=== PATIENT | female | born 1950 | race Caucasian/White ===

== ENCOUNTER 2016-04-14 17:37 | Emergency (ER) | payer BC ==
[2016-04-14 18:28] LABS: BASO % 0.2 % (0.0-1.0); EOS # 0.1 K/mm3 (0.0-0.50); EOS % 1.1 % (0.0-3.0); LARGE UNSTAINED CELL # 0.1 K/mm3 (0.0-0.4); LARGE UNSTAINED CELL % 1.6 % (0.0-4.0); LYMPH # 2.6 K/mm3 (1.5-4.5); LYMPH % 31.8 % (24.0-44.0); MEAN CORPUSCULAR HEMOGLOBIN 33.1 pg (27.0-33.0); MEAN CORPUSCULAR HGB CONC 35.1 g/dl (32.0-36.5); MEAN CORPUSCULAR VOLUME 94.4 fl (80.0-96.0); MONO # 0.5 K/mm3 (0.0-0.8); NEUTROPHILS # 4.6 K/mm3 (1.8-7.7); NEUTROPHILS % 59.4 % (36.0-66.0); PLATELET COUNT, AUTOMATED 222 k/mm3 (150-450); RED CELL DISTRIBUTION WIDTH 13.1 % (11.5-14.5); WHITE BLOOD COUNT 7.8 K/mm3 (4.0-10.0)
[2016-04-14 18:53] LABS: ALBUMIN 3.8 GM/DL (3.2-5.2); ALBUMIN/GLOBULIN RATIO 1.09 (1.00-1.93); ALKALINE PHOSPHATASE 92 U/L (45-117); ALT/SGPT 75 U/L (12-78); AMYLASE 30 U/L (25-115); ANION GAP 8 MEQ/L (8-16); AST/SGOT 69 U/L (15-37); BILIRUBIN,DIRECT 0.2 MG/DL (0.0-0.2); BILIRUBIN,TOTAL 0.5 MG/DL (0.2-1.0); BLOOD UREA NITROGEN 18 MG/DL (7-18); CALCIUM LEVEL 9.1 MG/DL (8.8-10.2); CARBON DIOXIDE LEVEL 29 MEQ/L (21-32); CHLORIDE LEVEL 105 MEQ/L (98-107); CREATININE FOR GFR 0.88 MG/DL (0.55-1.02); GLOMERULAR FILTRATION RATE > 60.0 (>45); GLUCOSE, FASTING 110 MG/DL (80-110); POTASSIUM SERUM 4.1 MEQ/L (3.5-5.1); SODIUM LEVEL 142 MEQ/L (136-145); TOTAL PROTEIN 7.3 GM/DL (6.4-8.2)
[2016-04-14] MEDS ORDERED: PANTOPRAZOLE 40MG INJ (PROTONIX) (C9113) As Ordered ONE (19:17)
[2016-04-14] MEDS ORDERED: ONDANSETRON 4MG/2ML VIAL (J2405) As Ordered ONE (19:17)
[2016-04-14] MEDS ORDERED: ISOVUE-370 76% 100ML VIAL (Q9967) As Ordered ONE (19:34)
--- NOTE | 2016-04-14 20:10 | REPUSA ---
CT of the abdomen and pelvis with contrast Clinical statement: Pain. Technique: Multiple axial CT images were obtained from the base of the lungs through the floor of the pelvis utilizing 5 mm axial slices after administration of nonionic intravenous contrast. Coronal an d sagittal reconstructions were also obtained. No comparison is available. Findings: Chest: The visualized lung bases are clear. Abdomen: The spleen, pancreas, kidneys, gallbladder, and adrenal glands are unremarkable. The liver d emonstrates diffuse low attenuation of the hepatic parenchyma, and is enlarged measuring 24.6 cm in m aximal diameter. The aorta is within normal limits. There is no evidence of abdominal lymphadenopathy or ascites. Pelvis: The bowel is unremarkable, with no obstructive or inflammatory changes. The appendix is pura l. Minimal sigmoid diverticulosis is appreciated. The urinary bladder is within normal limits. The ot her pelvic structures appear grossly intact. There is no evidence of pelvic lymphadenopathy or ascite s. Bones: There are no suspicious osseous abnormalities seen. Impression: 1. No acute abnormality to explain the patient's pain. 2. Hepatomegaly with diffuse fatty infiltration of the liver. 3. Minimal sigmoid diverticulosis, without evidence of diverticulitis.
--- NOTE | 2016-04-14 22:59 | EDDOCDS ---
Physician Documentation [facility] Name: Billie Becerril Age: 65 yrs Sex: Female : 1950 Arrival Date: 04/14/2016 Time: 17:37 Bed I2 / M2 Private MD: Salvatore Clancy Disposition: 04/14/16 22:44 Discharged to Home/Self Care. Impression: Vomiting. - Condition is Stable. - Discharge Instructions: Nausea and Vomiting. - Prescriptions for Tigan 300 mg Oral Capsule - take 1 capsule by ORAL route every 8 hours As needed; 12 capsule. - Medication Reconciliation, Local Pharmacy Hours form. - Follow up: Salvatore Clancy; When: 1 - 2 days; Reason: Recheck today's complaints, Continuance of care. - Problem is new. - Symptoms have improved. - Notes: USE MEDICATION INSTRUCTED, FOLLOW UP WITH YOUR DOCTOR TOMORROW, RETURN TO THE ER IF THE SYMPTOMS WORSEN OR BECOME CONCERNING Historical: - Allergies: SULFA (SULFONAMIDES); Aspirin; - Home Meds: 1. Lantus 100 unit/mL Sub-Q crtg 80 units daily 2. Augmentin 875-125 mg Oral tab (Last dose: 04/12/2016) 3. Victoza 2-Chidi 0.6 mg/0.1 mL (18 mg/3 mL) subcutaneous pnij once daily (Last dose: 04/13/2016) 4. Iron CR 325 mg Oral daily 5. hydrocortisone 0.5 % Topical crea once daily 6. Synthroid 75 mcg Oral tab once daily 7. pravastatin 80 mg oral tab once daily 8. cyanocobalamin (vitamin B-12) 1,000 mcg oral TbER daily 9. citalopram 20 mg Oral tab once daily 10. Niaspan Extended-Release 500 mg Oral Tb24 once daily 11. clotrimazole 1 % Topical crea 2 times per day 12. lysine 1,000 mg oral tab daily 13. Anusol 1-46.6-12.5 % Rectal oint daily 14. Xyzal 5 mg oral tab once daily 15. omeprazole 20 mg Oral TbEC daily 16. Trilipix 45 mg oral cpDR once daily 17. Vitamin D3 1,000 unit oral cap 18. allopurinol 300 mg Oral tab once daily 19. colchicine 0.6 mg Oral tab once daily 20. Depakote ER 250 mg Oral Tb24 once daily 21. calcium citrate 200 mg (950 mg) Oral tab daily 22. Demadex 20 mg Oral tab once daily - PMHx: Diverticulitis; Diabetes - IDDM: controlled; Gout; Seizure Disorder; Hypothyroidism; - Social history: Smoking status: Patient states was never smoker of tobacco. No barriers to communication noted, The patient speaks fluent Vietnamese, Speaks appropriately for age. - Family history: Not pertinent. - : The pt / caregiver states he / she is not on anticoagulants. Home medication list is obtained from a discharge med list. - Exposure Risk Screening:: None identified. Vital Signs: 04/14 17:39 BP 151 / 82; Pulse 94; Resp 20; Temp 97.6(TE); Pulse Ox 97% on R/A; Weight 97.52 kg / ar3 214.99 lbs (R); Height 5 ft. 7 in. (170.18 cm) (R); Pain 10/10; 22:33 BP 117 / 65; Pulse 78; Resp 18; Temp 97.1(O); Pulse Ox 94% on R/A; Pain 0/10; kb5 17:39 Body Mass Index 33.67 (97.52 kg, 170.18 cm) ar3 MDM: 18:10 Amylase Ordered. EDMS 18:10 Basic Metabolic Profile Ordered. EDMS 18:10 CBC with Diff Ordered. EDMS 18:10 Urinalysis Ordered. EDMS 18:10 NOTHING BY MOUTH+DIET ordered. EDMS 18:12 LIPASE Ordered. EDMS 18:12 LIVER PROFILE Ordered. EDMS 18:45 Accucheck ordered. ck7 19:00 CBC with Diff Reviewed. ck7 19:00 Urinalysis Reviewed. ck7 19:00 LIVER PROFILE Reviewed. ck7 19:00 Amylase Reviewed. ck7 19:00 Basic Metabolic Profile Reviewed. ck7 19:00 LIPASE Reviewed. ck7 19:02 IV Saline Lock ordered. ck7 19:02 NS 0.9% 1000 ml IV at bolus once ordered. ck7 19:02 Ondansetron 4 mg IVP once ordered. ck7 19:02 pantoprazole 40 mg IV at bolus once ordered. ck7 19:03 Cardiac Marker Panel Ordered. EDMS 19:04 ECG WITH READING ER PHYS+CARDIAG ordered. EDMS 19:04 CT ABD & PELVIS: IV Contrast Only Ordered. EDMS 20:59 CT ABD & PELVIS: IV Contrast Only Reviewed. ck7 21:56 Cardiac Marker Panel Reviewed. ck7 21:58 Fluid Challenge ordered. ck7 Point of Care Testing: Blood Glucose: 18:48 Blood Glucose: 103 mg/dL; ead Ranges: Administered Medications: 19:25 Drug: pantoprazole 40 mg [pantoprazole 40 mg intravenous solution] Route: IV; Rate: ld5 bolus; Site: right antecubital; 20:54 Follow up: IV Status: Completed infusion; IV Intake: 10ml ld5 19:26 Drug: NS 0.9% 1000 ml [sodium chloride 0.9 % intravenous solution] Route: IV; Rate: ld5 bolus; Site: right antecubital; 20:54 Follow up: IV Status: Completed infusion; IV Intake: 1000ml ld5 19:26 Drug: Ondansetron 4 mg [ondansetron HCl 2 mg/mL intravenous solution (2 mL)] Route: ld5 IVP; Site: right antecubital; 20:54 Follow up: Response: Nausea is decreased ld5 Signatures: Dispatcher [employer] EDTianna Garrison, RN RN Lilly Clarke,RN RN ld5 Randall Antonio, ANGE-C RPA-Cck7 Yuliet Anne,RN RN ead The chart was reviewed and I authenticate all verbal orders and agree with the evaluation and treatment provided.Corrections: (The following items were deleted from the chart) 18:11 18:10 LIPASE+LAB ordered. [facility] EDMS 18:11 18:10 LIVER PROFILE+LAB ordered. [facility] EDNV 18:23 18:08 Undress patient appropriately for examination ordered. maira ar3 MTDD
--- NOTE | 2016-04-14 22:59 | EDDOCDS ---
Nurse's Notes [facility] Name: Billie Becerril Age: 65 yrs Sex: Female : 1950 Arrival Date: 04/14/2016 Time: 17:37 Bed I2 / M2 Private MD: Salvatore Clancy Diagnosis: Vomiting Presentation: 04/14 17:42 Presenting complaint: Patient states: pt c/o n/v x 3 days. Seen by Primary one week ago ead and diagnosed with strep throat. reports pt unable to keep antibiotics down. Adult Sepsis Screening: The patient does not have new or worsening altered mentation. Patient's respiratory rate is less than 22. Systolic blood pressure is greater than 100. Patient has a qSOFA score of 0- Negative Sepsis Screen. Suicide/Homicide risk assessment- the patient denies having any suicidal and/or homicidal ideations and does not present with any other emotional, behavioral or mental health complaints. Status: Patient is not a sales & service associate or dependent. Transition of care: patient was not received from another setting of care. 17:42 Acuity: MAHESH Level 3 ead 17:42 Method Of Arrival: Walkin/Carried/Asstd ead Triage Assessment: 17:53 General: Appears in no apparent distress, Behavior is appropriate for age, cooperative. ead Pain: Denies pain. Neurological: Level of Consciousness is awake, alert, obeys commands, Oriented to person, place, time. Respiratory: Airway is patent Respiratory effort is even, unlabored. GI: Reports nausea, vomiting. Derm: Skin is pink, warm & dry. Historical: - Allergies: SULFA (SULFONAMIDES); Aspirin; - Home Meds: 1. Lantus 100 unit/mL Sub-Q crtg 80 units daily 2. Augmentin 875-125 mg Oral tab (Last dose: 04/12/2016) 3. Victoza 2-Chidi 0.6 mg/0.1 mL (18 mg/3 mL) subcutaneous pnij once daily (Last dose: 04/13/2016) 4. Iron CR 325 mg Oral daily 5. hydrocortisone 0.5 % Topical crea once daily 6. Synthroid 75 mcg Oral tab once daily 7. pravastatin 80 mg oral tab once daily 8. cyanocobalamin (vitamin B-12) 1,000 mcg oral TbER daily 9. citalopram 20 mg Oral tab once daily 10. Niaspan Extended-Release 500 mg Oral Tb24 once daily 11. clotrimazole 1 % Topical crea 2 times per day 12. lysine 1,000 mg oral tab daily 13. Anusol 1-46.6-12.5 % Rectal oint daily 14. Xyzal 5 mg oral tab once daily 15. omeprazole 20 mg Oral TbEC daily 16. Trilipix 45 mg oral cpDR once daily 17. Vitamin D3 1,000 unit oral cap 18. allopurinol 300 mg Oral tab once daily 19. colchicine 0.6 mg Oral tab once daily 20. Depakote ER 250 mg Oral Tb24 once daily 21. calcium citrate 200 mg (950 mg) Oral tab daily 22. Demadex 20 mg Oral tab once daily - PMHx: Diverticulitis; Diabetes - IDDM: controlled; Gout; Seizure Disorder; Hypothyroidism; - Social history: Smoking status: Patient states was never smoker of tobacco. No barriers to communication noted, The patient speaks fluent Maori, Speaks appropriately for age. - Family history: Not pertinent. - : The pt / caregiver states he / she is not on anticoagulants. Home medication list is obtained from a discharge med list. - Exposure Risk Screening:: None identified. Screenin:26 Screening information is obtained from the patient. Fall risk: No risks identified. ld5 Assistance ADL's: requires no assistance with activities of daily living. Abuse/DV Screen: The patient / caregiver reports he/she is: not in a situation that causes fear, pain or injury. Nutritional screening: No deficits noted. Advance Directives: There is no active DNR order. home support is adequate. Assessment: 19:26 General: Appears in no apparent distress, Behavior is cooperative. Pain: Location: left ld5 lower quadrant Pain currently is 8 out of 10 on a pain scale. Neurological: Level of Consciousness is awake, alert. Respiratory: Airway is patent Respiratory effort is even, unlabored, Breath sounds are clear bilaterally. GI: Abdomen is non- distended Bowel sounds present X 4 quads. Abd is tender to palpation in right lower quadrant and left lower quadrant Reports constipation, nausea, vomiting, intolerance of food, intolerance of fluids. : Denies burning with urination, pain with urination. Derm: Skin is intact, Skin is dry. 19:50 General: Appears in no apparent distress, Pt returned to bed from CT; resting on js15 stretcher with family at bedside; respirations even and unlabored; skin pink, warm, dry; given blanket per request. denies pain or other needs at this time. 20:36 General: Pt resting comfortably in bed. No apparent distress. Awaiting CT results. Will ld5 continue to monitor. 21:30 General: Appears in no apparent distress, Pt resting comfortably in bed watching TV. No ld5 apparent distress. Will continue to monitor. 22:56 General: Appears in no apparent distress, Behavior is cooperative. Pain: Denies pain. ld5 Neurological: Level of Consciousness is awake, alert. Respiratory: Airway is patent Respiratory effort is even, unlabored. GI: Denies nausea. Vital Signs: 17:39 BP 151 / 82; Pulse 94; Resp 20; Temp 97.6(TE); Pulse Ox 97% on R/A; Weight 97.52 kg ar3 (R); Height 5 ft. 7 in. (170.18 cm) (R); Pain 10/10; 22:33 BP 117 / 65; Pulse 78; Resp 18; Temp 97.1(O); Pulse Ox 94% on R/A; Pain 0/10; kb5 17:39 Body Mass Index 33.67 (97.52 kg, 170.18 cm) ar3 Vitals: 17:39 Log In Time: April 14, 2016 at 17:33. ar3 ED Course: 17:38 Patient visited by Ruba Dowell PCA. ar3 17:38 Salvatore Clancy is Private Physician. ar3 17:38 Patient moved to Waiting ar3 17:40 Patient moved to Pre RCE ar3 17:43 Triage Initiated ead 18:22 LIVER PROFILE Sent. ar3 18:22 LIPASE Sent. ar3 18:22 Amylase Sent. ar3 18:22 Basic Metabolic Profile Sent. ar3 18:22 CBC with Diff Sent. ar3 18:23 Urinalysis Sent. ar3 18:44 Patient moved to Triage 1 ar3 18:48 Randall Antonio RPA-C is [facility]. ck7 18:48 Leobardo Darnell MD is Attending Physician. ck7 18:48 Patient visited by Yuliet Anne RN. ead 18:48 Patient visited by Randall Antonio RPA-C. ck7 19:04 Patient moved to I2 / M2 ar3 19:08 Cardiac Marker Panel Sent. js15 19:22 EKG done. (by ED staff). Reviewed by Randall RUSSELL. kb5 19:26 The patient / caregiver is instructed regarding the plan of care and ED course. ld5 Accompanied by Significant Other, Patient has correct armband on for positive identification. Placed in gown. Bed in low position. Call light in reach. 19:26 Inserted saline lock: 20 gauge in right antecubital area The patient tolerated the ld5 procedure well. 19:28 Patient visited by Lilly Ramirez RN. ld5 19:54 Patient visited by Gato Mitchell PCA. kb5 20:36 Patient visited by Lilly Ramirez RN. ld5 20:55 CT ABD & PELVIS: IV Contrast Only Returned. EDMS 21:08 Patient visited by Gato Mitchell PCA. kb5 21:41 Patient visited by Randall Antonio RPA-C. ck7 22:16 Patient visited by Gato Mitchell PCA. kb5 22:33 Patient visited by Gato Mitchell PCA. kb5 22:44 Salvatore Clancy is Referral Physician. ck7 22:56 Discontinued lock intact, bleeding controlled, pressure dressing applied, No ld5 redness/swelling at site. No procedures done that require assistance. 22:57 Patient visited by Lilly Ramirez RN. ld5 Administered Medications: 19:25 Drug: pantoprazole 40 mg [pantoprazole 40 mg intravenous solution] Route: IV; Rate: ld5 bolus; Site: right antecubital; 20:54 Follow up: IV Status: Completed infusion; IV Intake: 10ml ld5 19:26 Drug: NS 0.9% 1000 ml [sodium chloride 0.9 % intravenous solution] Route: IV; Rate: ld5 bolus; Site: right antecubital; 20:54 Follow up: IV Status: Completed infusion; IV Intake: 1000ml ld5 19:26 Drug: Ondansetron 4 mg [ondansetron HCl 2 mg/mL intravenous solution (2 mL)] Route: ld5 IVP; Site: right antecubital; 20:54 Follow up: Response: Nausea is decreased ld5 Point of Care Testing: Blood Glucose: 18:48 Blood Glucose: 103 mg/dL; ead Ranges: Intake: 20:54 IV: 1000.00ml; Total: 1000.00ml. ld5 20:54 IV: 10.00ml; Total: 1010.00ml. ld5 Order Results: Lab Order: Amylase; SPEC'M 04/14/16 18:18 Test: AMYLASE; Value: 30; Range: 25-115; Units: U/L; Status: F Lab Order: Basic Metabolic Profile; SPEC'M 04/14/16 18:18 Test: GLUCOSE, FASTING; Value: 110; Range: 80-110; Units: MG/DL; Status: F Test: BLOOD UREA NITROGEN; Value: 18; Range: 7-18; Units: MG/DL; Status: F Test: CREATININE FOR GFR; Value: 0.88; Range: 0.55-1.02; Units: MG/DL; Status: F Test: GLOMERULAR FILTRATION RATE; Value: > 60.0; Range: >45; Status: F Test: SODIUM LEVEL; Value: 142; Range: 136-145; Units: MEQ/L; Status: F Test: POTASSIUM SERUM; Value: 4.1; Range: 3.5-5.1; Units: MEQ/L; Status: F Test: CHLORIDE LEVEL; Value: 105; Range: 98-107; Units: MEQ/L; Status: F Test: CARBON DIOXIDE LEVEL; Value: 29; Range: 21-32; Units: MEQ/L; Status: F Test: ANION GAP; Value: 8; Range: 8-16; Units: MEQ/L; Status: F Test: CALCIUM LEVEL; Value: 9.1; Range: 8.8-10.2; Units: MG/DL; Status: F Test Note: ; Units are mL/min/1.73 m2 Chronic Kidney Disease Staging per NKF: Stage I & II GFR >=60 Normal to Mildly Decreased Stage III GFR 30-59 Moderately Decreased Stage IV GFR 15-29 Severely Decreased Stage V GFR <15 Very Little GFR Left ESRD GFR <15 on CODER Lab Order: CBC with Diff; SPEC'M 04/14/16 18:18 Test: WHITE BLOOD COUNT; Value: 7.8; Range: 4.0-10.0; Units: K/mm3; Status: F Test: RED BLOOD COUNT; Value: 4.64; Range: 4.00-5.40; Units: M/mm3; Status: F Test: HEMOGLOBIN; Value: 15.4; Range: 12.0-16.0; Units: g/dl; Status: F Test: HEMATOCRIT; Value: 43.8; Range: 36.0-47.0; Units: %; Status: F Test: MEAN CORPUSCULAR VOLUME; Value: 94.4; Range: 80.0-96.0; Units: fl; Status: F Test: MEAN CORPUSCULAR HEMOGLOBIN; Value: 33.1; Range: 27.0-33.0; Abnormal: Above high normal; Units: pg; Status: F Test: MEAN CORPUSCULAR HGB CONC; Value: 35.1; Range: 32.0-36.5; Units: g/dl; Status: F Test: RED CELL DISTRIBUTION WIDTH; Value: 13.1; Range: 11.5-14.5; Units: %; Status: F Test: PLATELET COUNT, AUTOMATED; Value: 222; Range: 150-450; Units: k/mm3; Status: F Test: NEUTROPHILS %; Value: 59.4; Range: 36.0-66.0; Units: %; Status: F Test: LYMPH %; Value: 31.8; Range: 24.0-44.0; Units: %; Status: F Test: MONO %; Value: 6.0; Range: 0.0-5.0; Abnormal: Above high normal; Units: %; Status: F Test: EOS %; Value: 1.1; Range: 0.0-3.0; Units: %; Status: F Test: BASO %; Value: 0.2; Range: 0.0-1.0; Units: %; Status: F Test: LARGE UNSTAINED CELL %; Value: 1.6; Range: 0.0-4.0; Units: %; Status: F Test: NEUTROPHILS #; Value: 4.6; Range: 1.8-7.7; Units: K/mm3; Status: F Test: LYMPH #; Value: 2.6; Range: 1.5-4.5; Units: K/mm3; Status: F Test: MONO #; Value: 0.5; Range: 0.0-0.8; Units: K/mm3; Status: F Test: EOS #; Value: 0.1; Range: 0.0-0.50; Units: K/mm3; Status: F Test: BASO #; Value: 0.0; Range: 0.0-0.2; Units: K/mm3; Status: F Test: LARGE UNSTAINED CELL #; Value: 0.1; Range: 0.0-0.4; Units: K/mm3; Status: F Lab Order: Urinalysis; SPEC'M 04/14/16 18:18 Test: APPEARANCE, URINE; Value: HAZY; Range: CLEAR; Status: F Test: COLOR, URINE; Value: IGGY; Range: YELLOW; Status: F Test: PH,URINE; Value: 5.0; Range: 5.0-9.0; Units: UNITS; Status: F Test: SPECIFIC GRAVITY URINE AUTO; Value: 1.026; Range: 1.002-1.035; Status: F Test: PROTEIN, URINE AUTO; Value: 1+; Range: NEGATIVE; Abnormal: Above high normal; Units: mg/dL; Status: F Test: GLUCOSE, URINE (UA) AUTO; Value: NEGATIVE; Range: NEGATIVE; Units: mg/dL; Status: F Test: KETONE, URINE AUTO; Value: NEGATIVE; Range: NEGATIVE; Units: mg/dL; Status: F Test: UROBILINOGEN, URINE AUTO; Value: 0.2; Range: 0.0-2.0; Units: mg/dL; Status: F Test: BILIRUBIN, URINE AUTO; Value: NEGATIVE; Range: NEGATIVE; Status: F Test: NITRITE, URINE AUTO; Value: NEGATIVE; Range: NEGATIVE; Status: F Test: LEUKOCYTE ESTERASE, URINE AUTO; Value: NEGATIVE; Range: NEGATIVE; Status: F Test: BLOOD, URINE BLOOD; Value: NEGATIVE; Range: NEGATIVE; Status: F Test: WBC, URINE AUTO; Value: 7; Range: 0-3; Abnormal: Above high normal; Units: /HPF; Status: F Test: RBC, URINE AUTO; Value: 4; Range: 0-3; Abnormal: Above high normal; Units: /HPF; Status: F Test: BACTERIA, URINE AUTO; Value: NEGATIVE; Range: NEGATIVE; Status: F Test: SQUAMOUS EPITHELIAL CELL UR AU; Value: 2; Range: 0-6; Units: /HPF; Status: F Test: MUCUS, URINE; Value: LARGE; Range: NEGATIVE; Status: F Test: HYALINE CAST, URINE AUTO; Value: 24; Range: 0-1; Units: /LPF; Status: F Lab Order: LIPASE; [facility] 04/14/16 18:18 Test: LIPASE; Value: 117; Range: 73-393; Units: U/L; Status: F Lab Order: LIVER PROFILE; [facility] 04/14/16 18:18 Test: AST/SGOT; Value: 69; Range: 15-37; Abnormal: Above high normal; Units: U/L; Status: F Test: ALT/SGPT; Value: 75; Range: 12-78; Units: U/L; Status: F Test: ALKALINE PHOSPHATASE; Value: 92; Range: 45-117; Units: U/L; Status: F Test: BILIRUBIN,TOTAL; Value: 0.5; Range: 0.2-1.0; Units: MG/DL; Status: F Test: BILIRUBIN,DIRECT; Value: 0.2; Range: 0.0-0.2; Units: MG/DL; Status: F Test: TOTAL PROTEIN; Value: 7.3; Range: 6.4-8.2; Units: GM/DL; Status: F Test: ALBUMIN; Value: 3.8; Range: 3.2-5.2; Units: GM/DL; Status: F Test: ALBUMIN/GLOBULIN RATIO; Value: 1.09; Range: 1.00-1.93; Status: F Lab Order: Cardiac Marker Panel; [facility] 04/14/16 21:01 Test: CPK CREATINE PHOSPHOKINASE; Value: 55; Range: 26-192; Units: U/L; Status: F Test: CK-MB VALUE MASS; Value: 1.7; Range: 0.0-3.6; Units: NG/ML; Status: F Test: MB/CK RELATIVE INDEX; Value: 3.09; Range: < OR =4; Status: F Test: TROPONIN I; Value: < 0.02; Range: < 0.10; Units: NG/ML; Status: F Test Note: ; DIAGNOSIS CRITERIA MMB ng/ml Relative Index (RI) NON-AMI < or = 5 N/A ELAINE ZONE > 5 < or = 4 AMI > 5 > 4 Radiology Order: CT ABD & PELVIS: IV Contrast Only Test: CT ABD & PELVIS: IV Contrast Only REASON FOR EXAMINATION: Abdomen Pain; ; CT of the abdomen and pelvis with contrast; Clinical statement: Pain.; Technique: Multiple axial CT images were obtained from the base of the lungs through the floor of the; pelvis utilizing 5 mm axial slices after administration of nonionic intravenous contrast. Coronal an; d sagittal reconstructions were also obtained.; No comparison is available.; Findings:; Chest: The visualized lung bases are clear.; Abdomen: The spleen, pancreas, kidneys, gallbladder, and adrenal glands are unremarkable. The liver d; emonstrates diffuse low attenuation of the hepatic parenchyma, and is enlarged measuring 24.6 cm in m; aximal diameter. The aorta is within normal limits. There is no evidence of abdominal lymphadenopathy; or ascites.; Pelvis: The bowel is unremarkable, with no obstructive or inflammatory changes. The appendix is pura; l. Minimal sigmoid diverticulosis is appreciated. The urinary bladder is within normal limits. The ot; her pelvic structures appear grossly intact. There is no evidence of pelvic lymphadenopathy or ascite; s.; Bones: There are no suspicious osseous abnormalities seen.; Impression:; 1. No acute abnormality to explain the patient's pain.; 2. Hepatomegaly with diffuse fatty infiltration of the liver.; 3. Minimal sigmoid diverticulosis, without evidence of diverticulitis.; ; Outcome: 22:44 Discharge ordered by Provider. ck7 22:56 Discharge Assessment: Patient awake, alert and oriented x 3. No cognitive and/or ld5 functional deficits noted. Patient verbalized understanding of disposition instructions. patient administered narcotics - no. The following High Risk Discharge criteria are identified: None. Discharged to home ambulatory, with significant other. Condition: stable. Discharge instructions given to patient, significant other, Instructed on discharge instructions, follow up and referral plans. medication usage, Demonstrated understanding of instructions, medications, Pt was receptive of discharge instructions/ teaching. Prescriptions given X 1. CT Study completed. Property :Personal belongings accompany Pt. 22:57 Patient left the ED. ld5 Signatures: Dispatcher [employer] Gato Pantoja, TAKE OFF WORKER TAKE OFF WORKER kb5 Ruba Dowell, TAKE OFF WORKER TAKE OFF WORKER ar3 Lilly Ramirez,RN RN ld5 Randall Antonio, ANGE-C RPA-Cck7 Yuliet Anne,RN RN ead Ana María Wilks,RN RN [email or web address] BRANDO
--- NOTE | 2016-04-16 10:03 | ECGEPIP ---
Stationary ECG Study [facility] - ED Test Date: 2016-04-14 Pat Name: MARITA CHO Department: Room: - Gender: F Sales Activity Manager: [place] : 1950 Requested By: Randall Lara PA-C Order Number: [id number] Reading MD: Remberto Alanis Measurements Intervals [place] Rate: 83 P: 54 MN: 172 QRS: 1 QRSD: 92 T: 19 QT: 388 QTc: 457 Interpretive Statements SINUS RHYTHM NONSPECIFIC ST & T-WAVE ABNORMALITY NO PRIORS Electronically Signed On 04-16-2016 10:03:28 EST by Remberto Alanis
--- NOTE | 2016-04-16 23:58 | EDDOCDS ---
Physician Documentation [facility] Name: Billie Becerril Age: 65 yrs Sex: Female : 1950 Arrival Date: 04/14/2016 Time: 17:37 Bed I2 / M2 Private MD: Salvatore Clancy Disposition: 04/14/16 22:44 Discharged to Home/Self Care. Impression: Vomiting. - Condition is Stable. - Discharge Instructions: Nausea and Vomiting. - Prescriptions for Tigan 300 mg Oral Capsule - take 1 capsule by ORAL route every 8 hours As needed; 12 capsule. - Medication Reconciliation, Local Pharmacy Hours form. - Follow up: Salvatore Clancy; When: 1 - 2 days; Reason: Recheck today's complaints, Continuance of care. - Problem is new. - Symptoms have improved. - Notes: USE MEDICATION INSTRUCTED, FOLLOW UP WITH YOUR DOCTOR TOMORROW, RETURN TO THE ER IF THE SYMPTOMS WORSEN OR BECOME CONCERNING Historical: - Allergies: SULFA (SULFONAMIDES); Aspirin; - Home Meds: 1. Lantus 100 unit/mL Sub-Q crtg 80 units daily 2. Augmentin 875-125 mg Oral tab (Last dose: 04/12/2016) 3. Victoza 2-Chidi 0.6 mg/0.1 mL (18 mg/3 mL) subcutaneous pnij once daily (Last dose: 04/13/2016) 4. Iron CR 325 mg Oral daily 5. hydrocortisone 0.5 % Topical crea once daily 6. Synthroid 75 mcg Oral tab once daily 7. pravastatin 80 mg oral tab once daily 8. cyanocobalamin (vitamin B-12) 1,000 mcg oral TbER daily 9. citalopram 20 mg Oral tab once daily 10. Niaspan Extended-Release 500 mg Oral Tb24 once daily 11. clotrimazole 1 % Topical crea 2 times per day 12. lysine 1,000 mg oral tab daily 13. Anusol 1-46.6-12.5 % Rectal oint daily 14. Xyzal 5 mg oral tab once daily 15. omeprazole 20 mg Oral TbEC daily 16. Trilipix 45 mg oral cpDR once daily 17. Vitamin D3 1,000 unit oral cap 18. allopurinol 300 mg Oral tab once daily 19. colchicine 0.6 mg Oral tab once daily 20. Depakote ER 250 mg Oral Tb24 once daily 21. calcium citrate 200 mg (950 mg) Oral tab daily 22. Demadex 20 mg Oral tab once daily - PMHx: Diverticulitis; Diabetes - IDDM: controlled; Gout; Seizure Disorder; Hypothyroidism; - Social history: Smoking status: Patient states was never smoker of tobacco. No barriers to communication noted, The patient speaks fluent Georgian, Speaks appropriately for age. - Family history: Not pertinent. - : The pt / caregiver states he / she is not on anticoagulants. Home medication list is obtained from a discharge med list. - Exposure Risk Screening:: None identified. Vital Signs: 04/14 17:39 BP 151 / 82; Pulse 94; Resp 20; Temp 97.6(TE); Pulse Ox 97% on R/A; Weight 97.52 kg / ar3 214.99 lbs (R); Height 5 ft. 7 in. (170.18 cm) (R); Pain 10/10; 22:33 BP 117 / 65; Pulse 78; Resp 18; Temp 97.1(O); Pulse Ox 94% on R/A; Pain 0/10; kb5 17:39 Body Mass Index 33.67 (97.52 kg, 170.18 cm) ar3 MDM: 18:10 Amylase Ordered. EDMS 18:10 Basic Metabolic Profile Ordered. EDMS 18:10 CBC with Diff Ordered. EDMS 18:10 Urinalysis Ordered. EDMS 18:10 NOTHING BY MOUTH+DIET ordered. EDMS 18:12 LIPASE Ordered. EDMS 18:12 LIVER PROFILE Ordered. EDMS 18:45 Accucheck ordered. ck7 19:00 CBC with Diff Reviewed. ck7 19:00 Urinalysis Reviewed. ck7 19:00 LIVER PROFILE Reviewed. ck7 19:00 Amylase Reviewed. ck7 19:00 Basic Metabolic Profile Reviewed. ck7 19:00 LIPASE Reviewed. ck7 19:02 IV Saline Lock ordered. ck7 19:02 NS 0.9% 1000 ml IV at bolus once ordered. ck7 19:02 Ondansetron 4 mg IVP once ordered. ck7 19:02 pantoprazole 40 mg IV at bolus once ordered. ck7 19:03 Cardiac Marker Panel Ordered. EDMS 19:04 ECG WITH READING ER PHYS+CARDIAG ordered. EDMS 19:04 CT ABD & PELVIS: IV Contrast Only Ordered. EDMS 20:59 CT ABD & PELVIS: IV Contrast Only Reviewed. ck7 21:56 Cardiac Marker Panel Reviewed. ck7 21:58 Fluid Challenge ordered. ck7 23:02 [facility] Payment Agreement was scanned into [employer] and attached to record. lucy 23:03 Financial registration complete. lucy Point of Care Testing: Blood Glucose: 18:48 Blood Glucose: 103 mg/dL; matthew Ranges: Administered Medications: 19:25 Drug: pantoprazole 40 mg [pantoprazole 40 mg intravenous solution] Route: IV; Rate: ld5 bolus; Site: right antecubital; 20:54 Follow up: IV Status: Completed infusion; IV Intake: 10ml ld5 19:26 Drug: NS 0.9% 1000 ml [sodium chloride 0.9 % intravenous solution] Route: IV; Rate: ld5 bolus; Site: right antecubital; 20:54 Follow up: IV Status: Completed infusion; IV Intake: 1000ml ld5 19:26 Drug: Ondansetron 4 mg [ondansetron HCl 2 mg/mL intravenous solution (2 mL)] Route: ld5 IVP; Site: right antecubital; 20:54 Follow up: Response: Nausea is decreased ld5 Signatures: Dispatcher [employer] EDMD Tianna Avila RN Lilly ValentinRN RN ld5 Randall Antonio, RPA-C [id number] Yuliet AnneRN Ashwini Maddox The chart was reviewed and I authenticate all verbal orders and agree with the evaluation and treatment provided.Corrections: (The following items were deleted from the chart) 18:11 18:10 LIPASE+LAB ordered. EDMD EDMS 18:11 18:10 LIVER PROFILE+LAB ordered. EDMD EDMS 18:23 18:08 Undress patient appropriately for examination ordered. abi ar3 Attachments: 23:02 [facility] Payment Agreement lucy Chart Complete MTDD
--- NOTE | 2016-04-16 23:58 | EDDOCDS ---
Physician Documentation [facility] Name: Billie Becerril Age: 65 yrs Sex: Female : 1950 Arrival Date: 04/14/2016 Time: 17:37 Bed I2 / M2 Private MD: Salvatore Clancy Disposition: 04/14/16 22:44 Discharged to Home/Self Care. Impression: Vomiting. - Condition is Stable. - Discharge Instructions: Nausea and Vomiting. - Prescriptions for Tigan 300 mg Oral Capsule - take 1 capsule by ORAL route every 8 hours As needed; 12 capsule. - Medication Reconciliation, Local Pharmacy Hours form. - Follow up: Salvatore Clancy; When: 1 - 2 days; Reason: Recheck today's complaints, Continuance of care. - Problem is new. - Symptoms have improved. - Notes: USE MEDICATION INSTRUCTED, FOLLOW UP WITH YOUR DOCTOR TOMORROW, RETURN TO THE ER IF THE SYMPTOMS WORSEN OR BECOME CONCERNING Historical: - Allergies: SULFA (SULFONAMIDES); Aspirin; - Home Meds: 1. Lantus 100 unit/mL Sub-Q crtg 80 units daily 2. Augmentin 875-125 mg Oral tab (Last dose: 04/12/2016) 3. Victoza 2-Chidi 0.6 mg/0.1 mL (18 mg/3 mL) subcutaneous pnij once daily (Last dose: 04/13/2016) 4. Iron CR 325 mg Oral daily 5. hydrocortisone 0.5 % Topical crea once daily 6. Synthroid 75 mcg Oral tab once daily 7. pravastatin 80 mg oral tab once daily 8. cyanocobalamin (vitamin B-12) 1,000 mcg oral TbER daily 9. citalopram 20 mg Oral tab once daily 10. Niaspan Extended-Release 500 mg Oral Tb24 once daily 11. clotrimazole 1 % Topical crea 2 times per day 12. lysine 1,000 mg oral tab daily 13. Anusol 1-46.6-12.5 % Rectal oint daily 14. Xyzal 5 mg oral tab once daily 15. omeprazole 20 mg Oral TbEC daily 16. Trilipix 45 mg oral cpDR once daily 17. Vitamin D3 1,000 unit oral cap 18. allopurinol 300 mg Oral tab once daily 19. colchicine 0.6 mg Oral tab once daily 20. Depakote ER 250 mg Oral Tb24 once daily 21. calcium citrate 200 mg (950 mg) Oral tab daily 22. Demadex 20 mg Oral tab once daily - PMHx: Diverticulitis; Diabetes - IDDM: controlled; Gout; Seizure Disorder; Hypothyroidism; - Social history: Smoking status: Patient states was never smoker of tobacco. No barriers to communication noted, The patient speaks fluent Malay, Speaks appropriately for age. - Family history: Not pertinent. - : The pt / caregiver states he / she is not on anticoagulants. Home medication list is obtained from a discharge med list. - Exposure Risk Screening:: None identified. Vital Signs: 04/14 17:39 BP 151 / 82; Pulse 94; Resp 20; Temp 97.6(TE); Pulse Ox 97% on R/A; Weight 97.52 kg / ar3 214.99 lbs (R); Height 5 ft. 7 in. (170.18 cm) (R); Pain 10/10; 22:33 BP 117 / 65; Pulse 78; Resp 18; Temp 97.1(O); Pulse Ox 94% on R/A; Pain 0/10; kb5 17:39 Body Mass Index 33.67 (97.52 kg, 170.18 cm) ar3 MDM: 18:10 Amylase Ordered. EDMS 18:10 Basic Metabolic Profile Ordered. EDMS 18:10 CBC with Diff Ordered. EDMS 18:10 Urinalysis Ordered. EDMS 18:10 NOTHING BY MOUTH+DIET ordered. EDMS 18:12 LIPASE Ordered. EDMS 18:12 LIVER PROFILE Ordered. EDMS 18:45 Accucheck ordered. ck7 19:00 CBC with Diff Reviewed. ck7 19:00 Urinalysis Reviewed. ck7 19:00 LIVER PROFILE Reviewed. ck7 19:00 Amylase Reviewed. ck7 19:00 Basic Metabolic Profile Reviewed. ck7 19:00 LIPASE Reviewed. ck7 19:02 IV Saline Lock ordered. ck7 19:02 NS 0.9% 1000 ml IV at bolus once ordered. ck7 19:02 Ondansetron 4 mg IVP once ordered. ck7 19:02 pantoprazole 40 mg IV at bolus once ordered. ck7 19:03 Cardiac Marker Panel Ordered. EDMS 19:04 ECG WITH READING ER PHYS+CARDIAG ordered. EDMS 19:04 CT ABD & PELVIS: IV Contrast Only Ordered. EDMS 20:59 CT ABD & PELVIS: IV Contrast Only Reviewed. ck7 21:56 Cardiac Marker Panel Reviewed. ck7 21:58 Fluid Challenge ordered. ck7 23:02 [facility] Payment Agreement was scanned into [employer] and attached to record. lucy 23:03 Financial registration complete. lucy Point of Care Testing: Blood Glucose: 18:48 Blood Glucose: 103 mg/dL; matthew Ranges: Administered Medications: 19:25 Drug: pantoprazole 40 mg [pantoprazole 40 mg intravenous solution] Route: IV; Rate: ld5 bolus; Site: right antecubital; 20:54 Follow up: IV Status: Completed infusion; IV Intake: 10ml ld5 19:26 Drug: NS 0.9% 1000 ml [sodium chloride 0.9 % intravenous solution] Route: IV; Rate: ld5 bolus; Site: right antecubital; 20:54 Follow up: IV Status: Completed infusion; IV Intake: 1000ml ld5 19:26 Drug: Ondansetron 4 mg [ondansetron HCl 2 mg/mL intravenous solution (2 mL)] Route: ld5 IVP; Site: right antecubital; 20:54 Follow up: Response: Nausea is decreased ld5 Signatures: Dispatcher [employer] EDNJ Tianna Avila RN Lilly ValentinRN RN ld5 Randall Antonio, RPA-C [id number] Yuliet AnneRN Ashwini Maddox The chart was reviewed and I authenticate all verbal orders and agree with the evaluation and treatment provided.Corrections: (The following items were deleted from the chart) 18:11 18:10 LIPASE+LAB ordered. EDNJ EDMS 18:11 18:10 LIVER PROFILE+LAB ordered. EDNJ EDMS 18:23 18:08 Undress patient appropriately for examination ordered. abi ar3 Attachments: 23:02 [facility] Payment Agreement lucy Chart Complete MTDD
--- NOTE | 2016-04-16 23:59 | EDDOCDS ---
Nurse's Notes [facility] Name: Billie Becerril Age: 65 yrs Sex: Female : 1950 Arrival Date: 04/14/2016 Time: 17:37 Bed I2 / M2 Private MD: Salvatore Clancy Diagnosis: Vomiting Presentation: 04/14 17:42 Presenting complaint: Patient states: pt c/o n/v x 3 days. Seen by Primary one week ago ead and diagnosed with strep throat. reports pt unable to keep antibiotics down. Adult Sepsis Screening: The patient does not have new or worsening altered mentation. Patient's respiratory rate is less than 22. Systolic blood pressure is greater than 100. Patient has a qSOFA score of 0- Negative Sepsis Screen. Suicide/Homicide risk assessment- the patient denies having any suicidal and/or homicidal ideations and does not present with any other emotional, behavioral or mental health complaints. Status: Patient is not a service technician or dependent. Transition of care: patient was not received from another setting of care. 17:42 Acuity: MAHESH Level 3 ead 17:42 Method Of Arrival: Walkin/Carried/Asstd ead Triage Assessment: 17:53 General: Appears in no apparent distress, Behavior is appropriate for age, cooperative. ead Pain: Denies pain. Neurological: Level of Consciousness is awake, alert, obeys commands, Oriented to person, place, time. Respiratory: Airway is patent Respiratory effort is even, unlabored. GI: Reports nausea, vomiting. Derm: Skin is pink, warm & dry. Historical: - Allergies: SULFA (SULFONAMIDES); Aspirin; - Home Meds: 1. Lantus 100 unit/mL Sub-Q crtg 80 units daily 2. Augmentin 875-125 mg Oral tab (Last dose: 04/12/2016) 3. Victoza 2-Chidi 0.6 mg/0.1 mL (18 mg/3 mL) subcutaneous pnij once daily (Last dose: 04/13/2016) 4. Iron CR 325 mg Oral daily 5. hydrocortisone 0.5 % Topical crea once daily 6. Synthroid 75 mcg Oral tab once daily 7. pravastatin 80 mg oral tab once daily 8. cyanocobalamin (vitamin B-12) 1,000 mcg oral TbER daily 9. citalopram 20 mg Oral tab once daily 10. Niaspan Extended-Release 500 mg Oral Tb24 once daily 11. clotrimazole 1 % Topical crea 2 times per day 12. lysine 1,000 mg oral tab daily 13. Anusol 1-46.6-12.5 % Rectal oint daily 14. Xyzal 5 mg oral tab once daily 15. omeprazole 20 mg Oral TbEC daily 16. Trilipix 45 mg oral cpDR once daily 17. Vitamin D3 1,000 unit oral cap 18. allopurinol 300 mg Oral tab once daily 19. colchicine 0.6 mg Oral tab once daily 20. Depakote ER 250 mg Oral Tb24 once daily 21. calcium citrate 200 mg (950 mg) Oral tab daily 22. Demadex 20 mg Oral tab once daily - PMHx: Diverticulitis; Diabetes - IDDM: controlled; Gout; Seizure Disorder; Hypothyroidism; - Social history: Smoking status: Patient states was never smoker of tobacco. No barriers to communication noted, The patient speaks fluent Italian, Speaks appropriately for age. - Family history: Not pertinent. - : The pt / caregiver states he / she is not on anticoagulants. Home medication list is obtained from a discharge med list. - Exposure Risk Screening:: None identified. Screenin:26 Screening information is obtained from the patient. Fall risk: No risks identified. ld5 Assistance ADL's: requires no assistance with activities of daily living. Abuse/DV Screen: The patient / caregiver reports he/she is: not in a situation that causes fear, pain or injury. Nutritional screening: No deficits noted. Advance Directives: There is no active DNR order. home support is adequate. Assessment: 19:26 General: Appears in no apparent distress, Behavior is cooperative. Pain: Location: left ld5 lower quadrant Pain currently is 8 out of 10 on a pain scale. Neurological: Level of Consciousness is awake, alert. Respiratory: Airway is patent Respiratory effort is even, unlabored, Breath sounds are clear bilaterally. GI: Abdomen is non- distended Bowel sounds present X 4 quads. Abd is tender to palpation in right lower quadrant and left lower quadrant Reports constipation, nausea, vomiting, intolerance of food, intolerance of fluids. : Denies burning with urination, pain with urination. Derm: Skin is intact, Skin is dry. 19:50 General: Appears in no apparent distress, Pt returned to bed from CT; resting on js15 stretcher with family at bedside; respirations even and unlabored; skin pink, warm, dry; given blanket per request. denies pain or other needs at this time. 20:36 General: Pt resting comfortably in bed. No apparent distress. Awaiting CT results. Will ld5 continue to monitor. 21:30 General: Appears in no apparent distress, Pt resting comfortably in bed watching TV. No ld5 apparent distress. Will continue to monitor. 22:56 General: Appears in no apparent distress, Behavior is cooperative. Pain: Denies pain. ld5 Neurological: Level of Consciousness is awake, alert. Respiratory: Airway is patent Respiratory effort is even, unlabored. GI: Denies nausea. Vital Signs: 17:39 BP 151 / 82; Pulse 94; Resp 20; Temp 97.6(TE); Pulse Ox 97% on R/A; Weight 97.52 kg ar3 (R); Height 5 ft. 7 in. (170.18 cm) (R); Pain 10/10; 22:33 BP 117 / 65; Pulse 78; Resp 18; Temp 97.1(O); Pulse Ox 94% on R/A; Pain 0/10; kb5 17:39 Body Mass Index 33.67 (97.52 kg, 170.18 cm) ar3 Vitals: 17:39 Log In Time: April 14, 2016 at 17:33. ar3 ED Course: 17:38 Patient visited by Ruba Dowell PCA. ar3 17:38 Salvatore Clancy is Private Physician. ar3 17:38 Patient moved to Waiting ar3 17:40 Patient moved to Pre RCE ar3 17:43 Triage Initiated ead 18:22 LIVER PROFILE Sent. ar3 18:22 LIPASE Sent. ar3 18:22 Amylase Sent. ar3 18:22 Basic Metabolic Profile Sent. ar3 18:22 CBC with Diff Sent. ar3 18:23 Urinalysis Sent. ar3 18:44 Patient moved to Triage 1 ar3 18:48 Randall Antonio RPA-C is PSYCHIATRIC. ck7 18:48 Leobardo Darnell MD is Attending Physician. ck7 18:48 Patient visited by Yuliet Anne RN. ead 18:48 Patient visited by Randall Antonio RPA-C. ck7 19:04 Patient moved to I2 / M2 ar3 19:08 Cardiac Marker Panel Sent. js15 19:22 EKG done. (by ED staff). Reviewed by Randall RUSSELL. kb5 19:26 The patient / caregiver is instructed regarding the plan of care and ED course. ld5 Accompanied by Significant Other, Patient has correct armband on for positive identification. Placed in gown. Bed in low position. Call light in reach. 19:26 Inserted saline lock: 20 gauge in right antecubital area The patient tolerated the ld5 procedure well. 19:28 Patient visited by Lilly Ramirez RN. ld5 19:54 Patient visited by Gato Mitchell PCA. kb5 20:36 Patient visited by Lilly Ramirez RN. ld5 20:55 CT ABD & PELVIS: IV Contrast Only Returned. EDMS 21:08 Patient visited by Gato Mitchell PCA. kb5 21:41 Patient visited by Randall Antonio RPA-C. ck7 22:16 Patient visited by Gato Mitchell PCA. kb5 22:33 Patient visited by Gato Mitchell PCA. kb5 22:44 Salvatore Clancy is Referral Physician. ck7 22:56 Discontinued lock intact, bleeding controlled, pressure dressing applied, No ld5 redness/swelling at site. No procedures done that require assistance. 22:57 Patient visited by Lilly Ramirez RN. ld5 23:02 [facility] Payment Agreement was scanned into [employer] and attached to record. gjb 04/16 10:05 EKG-ADULT Returned. EDMS Administered Medications: 04/14 19:25 Drug: pantoprazole 40 mg [pantoprazole 40 mg intravenous solution] Route: IV; Rate: ld5 bolus; Site: right antecubital; 20:54 Follow up: IV Status: Completed infusion; IV Intake: 10ml ld5 19:26 Drug: NS 0.9% 1000 ml [sodium chloride 0.9 % intravenous solution] Route: IV; Rate: ld5 bolus; Site: right antecubital; 20:54 Follow up: IV Status: Completed infusion; IV Intake: 1000ml ld5 19:26 Drug: Ondansetron 4 mg [ondansetron HCl 2 mg/mL intravenous solution (2 mL)] Route: ld5 IVP; Site: right antecubital; 20:54 Follow up: Response: Nausea is decreased ld5 Point of Care Testing: Blood Glucose: 18:48 Blood Glucose: 103 mg/dL; ead Ranges: Intake: 20:54 IV: 1000.00ml; Total: 1000.00ml. ld5 20:54 IV: 10.00ml; Total: 1010.00ml. ld5 Order Results: Lab Order: Amylase; SPEC'M 04/14/16 18:18 Test: AMYLASE; Value: 30; Range: 25-115; Units: U/L; Status: F Lab Order: Basic Metabolic Profile; SPEC'M 04/14/16 18:18 Test: GLUCOSE, FASTING; Value: 110; Range: 80-110; Units: MG/DL; Status: F Test: BLOOD UREA NITROGEN; Value: 18; Range: 7-18; Units: MG/DL; Status: F Test: CREATININE FOR GFR; Value: 0.88; Range: 0.55-1.02; Units: MG/DL; Status: F Test: GLOMERULAR FILTRATION RATE; Value: > 60.0; Range: >45; Status: F Test: SODIUM LEVEL; Value: 142; Range: 136-145; Units: MEQ/L; Status: F Test: POTASSIUM SERUM; Value: 4.1; Range: 3.5-5.1; Units: MEQ/L; Status: F Test: CHLORIDE LEVEL; Value: 105; Range: 98-107; Units: MEQ/L; Status: F Test: CARBON DIOXIDE LEVEL; Value: 29; Range: 21-32; Units: MEQ/L; Status: F Test: ANION GAP; Value: 8; Range: 8-16; Units: MEQ/L; Status: F Test: CALCIUM LEVEL; Value: 9.1; Range: 8.8-10.2; Units: MG/DL; Status: F Test Note: ; Units are mL/min/1.73 m2 Chronic Kidney Disease Staging per NKF: Stage I & II GFR >=60 Normal to Mildly Decreased Stage III GFR 30-59 Moderately Decreased Stage IV GFR 15-29 Severely Decreased Stage V GFR <15 Very Little GFR Left ESRD GFR <15 on [facility] Lab Order: CBC with Diff; SPEC'M 04/14/16 18:18 Test: WHITE BLOOD COUNT; Value: 7.8; Range: 4.0-10.0; Units: K/mm3; Status: F Test: RED BLOOD COUNT; Value: 4.64; Range: 4.00-5.40; Units: M/mm3; Status: F Test: HEMOGLOBIN; Value: 15.4; Range: 12.0-16.0; Units: g/dl; Status: F Test: HEMATOCRIT; Value: 43.8; Range: 36.0-47.0; Units: %; Status: F Test: MEAN CORPUSCULAR VOLUME; Value: 94.4; Range: 80.0-96.0; Units: fl; Status: F Test: MEAN CORPUSCULAR HEMOGLOBIN; Value: 33.1; Range: 27.0-33.0; Abnormal: Above high normal; Units: pg; Status: F Test: MEAN CORPUSCULAR HGB CONC; Value: 35.1; Range: 32.0-36.5; Units: g/dl; Status: F Test: RED CELL DISTRIBUTION WIDTH; Value: 13.1; Range: 11.5-14.5; Units: %; Status: F Test: PLATELET COUNT, AUTOMATED; Value: 222; Range: 150-450; Units: k/mm3; Status: F Test: NEUTROPHILS %; Value: 59.4; Range: 36.0-66.0; Units: %; Status: F Test: LYMPH %; Value: 31.8; Range: 24.0-44.0; Units: %; Status: F Test: MONO %; Value: 6.0; Range: 0.0-5.0; Abnormal: Above high normal; Units: %; Status: F Test: EOS %; Value: 1.1; Range: 0.0-3.0; Units: %; Status: F Test: BASO %; Value: 0.2; Range: 0.0-1.0; Units: %; Status: F Test: LARGE UNSTAINED CELL %; Value: 1.6; Range: 0.0-4.0; Units: %; Status: F Test: NEUTROPHILS #; Value: 4.6; Range: 1.8-7.7; Units: K/mm3; Status: F Test: LYMPH #; Value: 2.6; Range: 1.5-4.5; Units: K/mm3; Status: F Test: MONO #; Value: 0.5; Range: 0.0-0.8; Units: K/mm3; Status: F Test: EOS #; Value: 0.1; Range: 0.0-0.50; Units: K/mm3; Status: F Test: BASO #; Value: 0.0; Range: 0.0-0.2; Units: K/mm3; Status: F Test: LARGE UNSTAINED CELL #; Value: 0.1; Range: 0.0-0.4; Units: K/mm3; Status: F Lab Order: Urinalysis; SPEC'M 04/14/16 18:18 Test: APPEARANCE, URINE; Value: HAZY; Range: CLEAR; Status: F Test: COLOR, URINE; Value: IGGY; Range: YELLOW; Status: F Test: PH,URINE; Value: 5.0; Range: 5.0-9.0; Units: UNITS; Status: F Test: SPECIFIC GRAVITY URINE AUTO; Value: 1.026; Range: 1.002-1.035; Status: F Test: PROTEIN, URINE AUTO; Value: 1+; Range: NEGATIVE; Abnormal: Above high normal; Units: mg/dL; Status: F Test: GLUCOSE, URINE (UA) AUTO; Value: NEGATIVE; Range: NEGATIVE; Units: mg/dL; Status: F Test: KETONE, URINE AUTO; Value: NEGATIVE; Range: NEGATIVE; Units: mg/dL; Status: F Test: UROBILINOGEN, URINE AUTO; Value: 0.2; Range: 0.0-2.0; Units: mg/dL; Status: F Test: BILIRUBIN, URINE AUTO; Value: NEGATIVE; Range: NEGATIVE; Status: F Test: NITRITE, URINE AUTO; Value: NEGATIVE; Range: NEGATIVE; Status: F Test: LEUKOCYTE ESTERASE, URINE AUTO; Value: NEGATIVE; Range: NEGATIVE; Status: F Test: BLOOD, URINE BLOOD; Value: NEGATIVE; Range: NEGATIVE; Status: F Test: WBC, URINE AUTO; Value: 7; Range: 0-3; Abnormal: Above high normal; Units: /HPF; Status: F Test: RBC, URINE AUTO; Value: 4; Range: 0-3; Abnormal: Above high normal; Units: /HPF; Status: F Test: BACTERIA, URINE AUTO; Value: NEGATIVE; Range: NEGATIVE; Status: F Test: SQUAMOUS EPITHELIAL CELL UR AU; Value: 2; Range: 0-6; Units: /HPF; Status: F Test: MUCUS, URINE; Value: LARGE; Range: NEGATIVE; Status: F Test: HYALINE CAST, URINE AUTO; Value: 24; Range: 0-1; Units: /LPF; Status: F Lab Order: LIPASE; SPEC'M 04/14/16 18:18 Test: LIPASE; Value: 117; Range: 73-393; Units: U/L; Status: F Lab Order: LIVER PROFILE; SPEC'M 04/14/16 18:18 Test: AST/SGOT; Value: 69; Range: 15-37; Abnormal: Above high normal; Units: U/L; Status: F Test: ALT/SGPT; Value: 75; Range: 12-78; Units: U/L; Status: F Test: ALKALINE PHOSPHATASE; Value: 92; Range: 45-117; Units: U/L; Status: F Test: BILIRUBIN,TOTAL; Value: 0.5; Range: 0.2-1.0; Units: MG/DL; Status: F Test: BILIRUBIN,DIRECT; Value: 0.2; Range: 0.0-0.2; Units: MG/DL; Status: F Test: TOTAL PROTEIN; Value: 7.3; Range: 6.4-8.2; Units: GM/DL; Status: F Test: ALBUMIN; Value: 3.8; Range: 3.2-5.2; Units: GM/DL; Status: F Test: ALBUMIN/GLOBULIN RATIO; Value: 1.09; Range: 1.00-1.93; Status: F Lab Order: Cardiac Marker Panel; SPEC'M 04/14/16 21:01 Test: CPK CREATINE PHOSPHOKINASE; Value: 55; Range: 26-192; Units: U/L; Status: F Test: CK-MB VALUE MASS; Value: 1.7; Range: 0.0-3.6; Units: NG/ML; Status: F Test: MB/CK RELATIVE INDEX; Value: 3.09; Range: < OR =4; Status: F Test: TROPONIN I; Value: < 0.02; Range: < 0.10; Units: NG/ML; Status: F Test Note: ; DIAGNOSIS CRITERIA MMB ng/ml Relative Index (RI) NON-AMI < or = 5 N/A [place]ONE > 5 < or = 4 AMI > 5 > 4 Radiology Order: CT ABD & PELVIS: IV Contrast Only Test: CT ABD & PELVIS: IV Contrast Only REASON FOR EXAMINATION: Abdomen Pain; ; CT of the abdomen and pelvis with contrast; Clinical statement: Pain.; Technique: Multiple axial CT images were obtained from the base of the lungs through the floor of the; pelvis utilizing 5 mm axial slices after administration of nonionic intravenous contrast. Coronal an; d sagittal reconstructions were also obtained.; No comparison is available.; Findings:; Chest: The visualized lung bases are clear.; Abdomen: The spleen, pancreas, kidneys, gallbladder, and adrenal glands are unremarkable. The liver d; emonstrates diffuse low attenuation of the hepatic parenchyma, and is enlarged measuring 24.6 cm in m; aximal diameter. The aorta is within normal limits. There is no evidence of abdominal lymphadenopathy; or ascites.; Pelvis: The bowel is unremarkable, with no obstructive or inflammatory changes. The appendix is pura; l. Minimal sigmoid diverticulosis is appreciated. The urinary bladder is within normal limits. The ot; her pelvic structures appear grossly intact. There is no evidence of pelvic lymphadenopathy or ascite; s.; Bones: There are no suspicious osseous abnormalities seen.; Impression:; 1. No acute abnormality to explain the patient's pain.; 2. Hepatomegaly with diffuse fatty infiltration of the liver.; 3. Minimal sigmoid diverticulosis, without evidence of diverticulitis.; ; Outcome: 22:44 Discharge ordered by Provider. ck7 22:56 Discharge Assessment: Patient awake, alert and oriented x 3. No cognitive and/or ld5 functional deficits noted. Patient verbalized understanding of disposition instructions. patient administered narcotics - no. The following High Risk Discharge criteria are identified: None. Discharged to home ambulatory, with significant other. Condition: stable. Discharge instructions given to patient, significant other, Instructed on discharge instructions, follow up and referral plans. medication usage, Demonstrated understanding of instructions, medications, Pt was receptive of discharge instructions/ teaching. Prescriptions given X 1. CT Study completed. Property :Personal belongings accompany Pt. 22:57 Patient left the ED. ld5 Signatures: Dispatcher [employer] EDGato Adam, EMBOSSING CALENDER OPERATOR EMBOSSING CALENDER OPERATOR kb5 Ruba Dowell, EMBOSSING CALENDER OPERATOR EMBOSSING CALENDER OPERATOR ar3 Lilly Ramirez,RN RN ld5 Randall Antonio, RPA-C [id number] Yuliet Anne,RN RN Ana María Meadows,RN RN js15 Ashwini Monahan Chart Complete [facility]
== END 2016-04-14 22:57 | disposition home or self-care (01) ==
LOC: M ED 17:37
DX: R11.10 Vomiting, unspecified (principal); K57.92 Diverticulitis of intestine, part unspecified, without perforation or abscess without bleeding; E10.9 Type 1 diabetes mellitus without complications; M10.9 Gout, unspecified; G40.909 Epilepsy, unspecified, not intractable, without status epilepticus; E03.9 Hypothyroidism, unspecified; Z79.4 Long term (current) use of insulin; Z79.899 Other long term (current) drug therapy; Z88.2 Allergy status to sulfonamides; Z88.6 Allergy status to analgesic agent
CPT/HCPCS: 74177; 80048; 80076; 81001; 82150; 82550; 82553; 83690; 85025; 93005; 96365; 96375; 99284; C9113; J2405; Q9967